=== PATIENT | female | born 1985 | race Two or more races ===

== ENCOUNTER 2021-03-03 20:50 | Emergency (ER) | payer OTHER ==
[~2021-03-03] VITALS: Ht 162.6 cm; Wt 62.6 kg
[2021-03-03 23:30] VITALS: BP 111/71
== END 2021-03-03 23:25 | disposition home or self-care (01) ==
LOC: EDBD 20:50 → ER 20:59
DX: S96.911A Strain of unspecified muscle and tendon at ankle and foot level, right foot, initial encounter (principal); S46.912A Strain of unspecified muscle, fascia and tendon at shoulder and upper arm level, left arm, initial encounter; V49.9XXA Car occupant (driver) (passenger) injured in unspecified traffic accident, initial encounter; Y93.89 Activity, other specified; Y92.89 Other specified places as the place of occurrence of the external cause; Y99.8 Other external cause status
CPT/HCPCS: 73030; 73610